=== PATIENT | male | born 1985 | race Caucasian/White ===

== ENCOUNTER 2024-06-15 06:29 | Observation (INO) ==
--- NOTE | 2024-04-30 15:14 | PAT Medication Instructions ---
Medication Instructions Date of Service April 30, 2024 Home Medications celecoxib 100 mg capsule (Celebrex) 200 mg PO QAM cetirizine 10 mg tablet (Zyrtec) 10 mg PO QAM gabapentin 300 mg tablet 600 mg PO HS hydrochlorothiazide 25 mg tablet 25 mg PO QAM lisinopril 40 mg tablet 40 mg PO QAM montelukast 10 mg tablet 10 mg PO QAM multivitamin 1 tab PO QAM ASK your surgeon for instructions celecoxib 100 mg capsule (Celebrex) 200 mg PO QAM DO NOT take the morning of surgery cetirizine 10 mg tablet (Zyrtec) 10 mg PO QAM hydrochlorothiazide 25 mg tablet 25 mg PO QAM lisinopril 40 mg tablet 40 mg PO QAM montelukast 10 mg tablet 10 mg PO QAM multivitamin 1 tab PO QAM Take evening before surgery gabapentin 300 mg tablet 600 mg PO HS NOTHING TO EAT OR DRINK AFTER MIDNIGHT Other Notes If you have any questions please call us at [phone] or [phone] or [phone] or [phone]
--- NOTE | 2024-05-08 10:38 | Anesthesiology Consultation ---
Date of Service May 08, 2024 Assessment & Plan (1) Encounter for pre-operative examination: - awaiting surgeon ordered medical clearance ([facility]). - Outpatient joint pathway: Per surgeon and patient, plan for outpatient joint program. Upon review of chart- patient is an acceptable candidate for Same Day Joint Program from anesthesia perspective pending perioperative course. Pending patient is motivated, has good support and surgeon's office completes Same Day J oint Program preop requirements- patient may proceed with outpatient TIMI. Chart Review Chart Review: Pending: Refer to Additional Notes / Consult section and Patient seen in Pre Admission Testing Teaching & Discussion Pre-Anesthesia Teaching/Discussion Notes: Instructed NPO after midnight before surgery, except medications with 15 cc of water. Medication instructions provided according to the PAT guidelines. History Surgery Operation Date: 06/15/24 07:15 Proposed Procedures p OP: Left Total Hip Replacement - Anterior Approach - Bryce Santiago MD Height/Weight Height: 6 ft 4 in Weight: 115.666 kg Allergies Allergy/AdvReac Type Severity Reaction Status Date / Time bee venom protein (honey bee) Allergy Unknown remote hx, Verified 04/24/24 14:30 hx epi pen, think i grew out of Medications Home Medications Medication Instructions Recorded Confirmed Last Taken celecoxib 100 mg capsule (Celebrex) 200 mg PO QAM 04/24/24 04/24/24 Unknown cetirizine 10 mg tablet (Zyrtec) 10 mg PO QAM 04/24/24 04/24/24 Unknown gabapentin 300 mg tablet 600 mg PO HS 04/24/24 04/24/24 Unknown hydrochlorothiazide 25 mg tablet 25 mg PO QAM 04/24/24 04/24/24 Unknown lisinopril 40 mg tablet 40 mg PO QAM 04/24/24 04/24/24 Unknown montelukast 10 mg tablet 10 mg PO QAM 04/24/24 04/24/24 Unknown multivitamin 1 tab PO QAM 04/24/24 04/24/24 Unknown Past Medical History Medical History History of anesthesia reaction slow to wake up-denies needing re-intubated History of COVID-19 2020 HTN (hypertension) controlled, stable per pt Osteoarthritis left hip injections in hx, most recent: january or february 2024. Seasonal allergies Patient denies h/o stroke, seizures, heart attack, heart failure, DM, blood clots/DVTs or blood transfusions. Exercise / Class Metabolic Activity II 4-5 Yardwork/Stairs/Walk up hill (denies chest discomfort or shortness of breath with one flight of stairs) Past Surgical History Surgical History History of hernia surgery x2 History of tonsillectomy S/P hip arthroscopy left, 08/2022 - w/small composite screw placed Past Anesthesia History No Family Hx of Anesthesia Complications and Other (see above.) History of PONV No Hx of PONV and Hx of Motion Sickness Social History Smoking Status: Never smoker Do You Dip or Chew Tobacco: No Hx Alcohol Use: Yes Alcohol type: beer alcohol intake frequency: a few times a month Hx Substance Use: No substance use type: does not use Review of Systems Patient denies chest pain, shortness of breath, dyspnea on exertion, snoring, witnessed apneas, reflux, fever, chills, cough, wheezing, or palpitations. Physical Exam Vital Signs Vitals BP 129/78 P 61 TEMP 98.3 SP02 98% on RA RESP 18 Physical Patient resting comfortably in chair in no acute distress, alert and oriented, responding appropriately throughout visit Full cervical extension range of motion without pain TMD 3.5 finger breadths Mallampati Score 2 Dentition: intact, denies chipped or loose teeth, caps/crowns, implants or bridges Lungs: normal respiratory effort. Good air movement, clear throughout to auscultation, no adventitious breath sounds Cardiac: regular rate and rhythm, no murmurs noted Carotid arteries: negative bruit bilat Lab Results Anesthesia Preop Results Results Anesthesia Widget: WBC 6.80 K/ul (4.8-10.8) 05/08/24 Hgb 15.3 g/dl (14.0-18.0) 05/08/24 Hct 45.9 % (42.0-52.0) 05/08/24 Plt 173 K/uL (130-400) 05/08/24 Na 138 mmol/L (136-145) 05/08/24 K 3.7 mmol/L (3.5-5.1) 05/08/24 Cl 103 mmol/L (98-107) 05/08/24 CO2 29 mmol/L (21-32) 05/08/24 BUN 17 mg/dl (6-23) 05/08/24 Creat 0.85 mg/dl (0.6-1.4) 05/08/24 Glucose Level 81 mg/dl (70-99(Fasting)) 05/08/24 PT 10.8 Seconds (9.0-12.0) 05/08/24 PTT 27 Seconds (21-31) 05/08/24 INR 1.0 (0.9-1.1) 05/08/24 Urine Color Yellow 05/08/24 Urine Appearance Clear (Clear) 05/08/24 Urine pH 5.5 (4.5-7.5) 05/08/24 Urine Specific [place] 1.008 (1.000-1.030) 05/08/24 Urine Protein Negative (Negative) 05/08/24 Urine Glucose (UA) Negative (Negative) 05/08/24 Urine Ketones Negative (Negative) 05/08/24 Urine Blood Negative (Negative) 05/08/24 Urine Nitrite Negative (Negative) 05/08/24 Urine Bilirubin Negative (Negative) 05/08/24 Urine Urobilinogen Negative (Negative) 05/08/24 Urine Leukocyte Esterase Negative (Negative) 05/08/24 Blood Type B Negative 05/08/24 Antibody Screen NEGATIVE 05/08/24 Testing Electrocardiogram Date: 05/08/24 Sinus bradycardia, rate 55 bpm Right cuevas axis Chest X-Ray Date: 05/08/24 No acute chest disease.
--- NOTE | 2024-06-13 08:31 | History & Physical Report ---
Date of Service June 13, 2024 Assessment & Plan (1) Degenerative joint disease of left hip: Plan: Left total hip replacement direct anterior approach probable same-day surgery [facility] health will be with [facility] History of Present Illness Chief Complaint: Left hip pain Primary Care Provider: Uli Carranza MD Patient is a 39-year-old large statured male with a greater than 3-year history of left hip and groin pain. He has a history of hip arthroscopy with labral debridement where he was noted to have significant degenerative changes in 2020. He now presents with marked decrease in range of motion, limping, limited standing and walking tolerance. He has failed both physical therapy and intra- articular injections. 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 He is admitted for elective hip replacement surgery. Allergies Allergy/AdvReac Type Severity Reaction Status Date / Time bee venom protein (honey bee) Allergy Unknown remote hx, Verified 04/24/24 14:30 hx epi pen, think i grew out of Home Medications Medication Instructions Recorded Confirmed Type celecoxib 100 mg capsule (Celebrex) 200 mg PO QAM 04/24/24 04/24/24 History cetirizine 10 mg tablet (Zyrtec) 10 mg PO QAM 04/24/24 04/24/24 History gabapentin 300 mg tablet 600 mg PO HS 04/24/24 04/24/24 History hydrochlorothiazide 25 mg tablet 25 mg PO QAM 04/24/24 04/24/24 History lisinopril 40 mg tablet 40 mg PO QAM 04/24/24 04/24/24 History montelukast 10 mg tablet 10 mg PO QAM 04/24/24 04/24/24 History multivitamin 1 tab PO QAM 04/24/24 04/24/24 History Past Med/Surg History Problem List (Updated 06/13/24 @ 08:31 by Bryce Santiago MD) Degenerative joint disease of left hip Medical History History of COVID-19 2020 History of anesthesia reaction slow to wake up-denies needing re-intubated Osteoarthritis left hip injections in hx, most recent: january or february 2024. Seasonal allergies HTN (hypertension) controlled, stable per pt Surgical History S/P hip arthroscopy left, 08/2022 - w/small composite screw placed History of hernia surgery x2 History of tonsillectomy Social History Smoking Status: Never smoker Do You Dip or Chew Tobacco: No; Hx Alcohol Use: Yes Alcohol type: beer Hx Substance Use: No Preferred Language: [place] Communication Ability: Effective Collision Repairer Required: No Beliefs That Will Affect Care: None Current Living Situation: Spouse and Family Feels Safe at Home: Yes Assistive Devices: Contacts and Glasses Review of Systems Review of Systems: Hip and groin pain Physical Exam Physical Exam: Weight 120 kg BMI 32 General: Large statured male who appears his stated age. HEENT: NCAT, EOMI, PERRLA. Neck: Supple without bruits Heart: Regular rate and rhythm no murmurs Lungs: Breath sounds clear and present in all romero Abdomen: Obese soft nontender bowel sounds are positive Extremities: The left hip is 5 mm short passive range of motion is 0 to 90 degrees flexion -10 degrees internal rotation all which reproduces groin pain. Neurological and vascular: Intact Results & Data Results & Data Vital Signs (Past 12 Hours) Blood pressure 128/84 Pulse 78
[~2024-06-15 06:29] MED LIST: MEPIVACAINE HCL 1.5% 30 ML VIAL ONE
--- NOTE | 2024-06-15 06:52 | History & Physical Bridge Note ---
Date of Service June 15, 2024 History & Physical Bridge Note I have examined the patient, reviewed the History & Physical and in the interval since the performance of the History & Physical I have noted the following changes of clinical significance: no changes noted
[2024-06-15] MEDS: ACETAMINOPHEN 500 MG TAB PO SCH (07:07)
[2024-06-15] MEDS: LR 500ML BOLUS, THEN 15ML/HR IV SCH (07:07)
[2024-06-15] MEDS: GABAPENTIN 900 MG DOSE PO SCH (07:08)
[2024-06-15] MEDS: CeleBREX 200 MG CAP PO SCH (07:08)
[2024-06-15] MEDS: dexAMETHasone**PF** 10 MG/ML VIAL IV SCH (07:08)
[2024-06-15] MEDS: FAMOTIDINE 20 MG TAB PO SCH (07:08)
[2024-06-15] MEDS: METOCLOPRAMIDE HCL 10 MG TABLET PO SCH (07:09)
[2024-06-15] MEDS: oxyCODONE HCL 10 MG TABCR (OxyCONTIN) PO SCH (07:09)
[2024-06-15] MEDS: LR 60ML/HR IV SCH (07:09)
[2024-06-15] MEDS ORDERED: MIDAZOLAM HCL 1 MG/ML 2ML VIAL ONE (08:06)
[2024-06-15] MEDS ORDERED: ePHEDrine sulfate 50 MG/ML AMP IV PRN (08:30)
[2024-06-15] MEDS ORDERED: ATROPINE SULFATE 0.1 MG/ML 10ML SYR IV PRN (08:30)
[2024-06-15] MEDS ORDERED: ONDANSETRON INJ 2 MG/ML 2 ML VIAL IV PRN ×2 (08:30→17:17)
[2024-06-15] MEDS: TRANEXAMIC ACID 1,000 MG **IV Pre-op IV SCH (08:46)
[2024-06-15] MEDS ORDERED: fentaNYL citrate PF 100 MCG/2 ML VIAL ONE ×2 (08:56→10:43)
[2024-06-15] MEDS: ceFAZolin 3000MG 3,000 MG/72.5 ML BAG IV SCH (09:20)
[2024-06-15] MEDS: ORTHO JOINT ANESTHETIC ONE (09:53)
[2024-06-15] MEDS ORDERED: PROPOFOL IV EMULSION 10 MG/ML 20 ML VIAL IV ONE (10:23)
[2024-06-15] MEDS ORDERED: KETOROLAC 30 MG/ML VIAL ONE (10:23)
[2024-06-15] MEDS ORDERED: LIDOCAINE 2% 2 ML VIAL/AMP(20MG/ML) INFIL ONE (10:23)
[2024-06-15] MEDS: TRANEXAMIC ACID 1,000 MG **IV Intra-op IV SCH (10:25)
--- NOTE | 2024-06-15 10:31 | Post Operative Brief Note ---
Immediate Post Op Note Date of Surgery June 15, 2024 Pre & Post Diagnosis Operation Date: 06/15/24 09:05 Pre-Op Diagnosis: Osteoarthritis Left Hip Post-Op Diagnosis: Osteoarthritis Left Hip I identified the patient and participated in the time-out.: Yes Procedure Operation Date: 06/15/24 09:05 Actual Procedures p Left Total Hip Replacement - Anterior Approach(Left) - Bryce Santiago MD Surgeon Bryce Santiago MD Ribbon Inker Suleiman Fischer PAPetty Estimated Blood Loss 100 Findings Consistent with Post-Op Diagnosis Drains Hemovac Drain
[2024-06-15] MEDS: ROPIV 0.5% 246mg, Ketorolac 30mg, EPINEPHrine 0.5mg in NSS INFIL SCH (10:32)
[2024-06-15] MEDS: HYDROmorphone INJ 2 MG/ML SYR/VIAL IV PRN (11:04)
[2024-06-15] MEDS ORDERED: HYDROmorphone INJ 0.5 MG/0.5 ML SYR IV PRN ×2 (11:26→17:17)
[2024-06-15] MEDS: HYDROmorphone INJ 0.5 MG/0.5 ML SYR IV PRN (11:27)
[2024-06-15] MEDS: HYDROmorphone INJ 0.5 MG/0.5 ML SYR ONE (11:30)
--- NOTE | 2024-06-15 11:41 | Fluoroscopy Report ---
INTRAOPERATIVE RADIOGRAPHS CLINICAL HISTORY: Left hip arthroplasty placement. Fluoro time: 10 seconds Ka,r: 1.98 mGy FINDINGS: 2 spot fluoroscopic views of the left hip from an arthroplasty procedure are presented. A b ipolar left hip arthroplasty is in near anatomic alignment. A single cortical lag screw transfixes th e acetabular cup. There is no evidence of acute fracture on these fluoroscopic images. IMPRESSION: Intraoperative images from a left hip arthroplasty procedure as above. Electronically signed by: Luis Jiang M.D. 06/15/2024 11:39 AM
[2024-06-15] MEDS: traMADol HCL 50 MG TABLET PO PRN (12:31)
--- NOTE | 2024-06-15 12:35 | Operative Report ---
Post Operative Report Pre & Post Diagnosis Operation Date: 06/15/24 09:05 Pre-Op Diagnosis: Osteoarthritis Left Hip Post-Op Diagnosis: Osteoarthritis Left Hip I identified the patient and participated in the time-out.: Yes Procedure Operation Date: 06/15/24 09:05 Actual Procedures p Left Total Hip Replacement - Anterior Approach(Left) - Bryce Santiago MD Surgeon Bryce Santiago MD Meat Stock Clerk Suleiman Fischer PA-C Estimated Blood Loss 100 Findings Consistent with Post-Op Diagnosis Severe degenerative changes with acetabular dysplasia and large femoral head osteophytes Specimens Femoral head and bone and cartilage fragments Complications None Indications Components used: [employer] Polar uncemented system: Acetabulum size 56 with 25 mm dome screw and 36 mm highly cross-linked polyethylene liner. Femur size 6 standard offset with +836 mm Oxinium head Description of Procedure Following satisfactory spinal anesthesia the patient was supine on the operating room table. Left legin the traction device in the right leg in the well-leg kang. Positioning was confirmed with fluoroscopy. The leg was prepared with ChloraPrep and draped sterilely. A surgical timeout was performed. An anterior approach was performed in the interval between the sartorius and tensor muscles. The circumflex femoral vessels were identified and coagulated. An anterior capsulotomy was performed exposing the arthritic femoral neck and head. The hip showed the changes noted above. Fluoroscopy was used to confirm femoral neck resection level. The femoral head and neck were trimmed at the appropriate level and the arthritic femoral head was removed. The acetabular self-retaining retractor was placed. Acetabular preparation was completed with excision of labral and capsular tissue. The acetabulum was then reamed under direct vision. A 56 shell was impacted into a healthy bed in a position of 35 to 40 degrees of abduction and 25 degrees of anteversion confirmed with fluoroscopy. A dome screw was placed followed by the polyethylene liner. I large inferior osteophyte was removed. Local anesthetic was placed and the wound was irrigated. The femur was placed into a position of external rotation extension and adduction. Femoral canal was identified and was prepared up to the size 6. A trial reduction with a standard offset neck and a +8 head trial was performed. Fluoroscopy showed good fit and fill of the proximal canal, very good orientation of the components, and buddhism of leg length and offset at the level of the lesser trochanter. The hip was dislocated. The trial component removed. Local anesthetic was placed. After irrigation the final stem head complex of the same size was placed. The hip was reduced with fluoroscopy showing similar findings. The wound was irrigated with 500 cc of experience irrigation. There was some general oozing. A Hemovac drain was placed. The tensor fascia was closed with a running suture of 0 STRATAFIX as was the deeper subcutaneous fat layers. The most superficial layer was closed with a running subcuticular stitch of 3 oh STRATAFIX. Dermabond Prineo and a negative pressure wound dressing were applied. The patient was returned to his bed in stable condition. I attest to the content of the Intraoperative Record and any orders documented therein. Any exceptions are noted below.
--- NOTE | 2024-06-15 12:40 | Operative Report ---
Post Operative Report Pre & Post Diagnosis Operation Date: 06/15/24 09:05 Pre-Op Diagnosis: Osteoarthritis Left Hip Post-Op Diagnosis: Osteoarthritis Left Hip I identified the patient and participated in the time-out.: Yes Procedure Operation Date: 06/15/24 09:05 Actual Procedures p Left Total Hip Replacement - Anterior Approach(Left) - Bryec Santiago MD Surgeon Bryce Santiago MD Race Car Mechanic Suleiman WYMAN-C Estimated Blood Loss 100 Findings Consistent with Post-Op Diagnosis Specimens Femoral head and bone and cartilage fragments Description of Procedure Note: Suleiman WYMAN was present and assisted throughout due to the complicated nature of this case. He help with preparation and set up and medical assistant float throughout. He assisted with hemostasis and exposure throughout the procedure. He also closed the fascial subcutaneous and skin layers and applied the postop dressing. I attest to the content of the Intraoperative Record and any orders documented therein. Any exceptions are noted below.
--- NOTE | 2024-06-15 13:11 | Anesthesiology Progress Note ---
Date of Service June 15, 2024 Anesthesia Post Procedure Vital Signs Vital Signs: Temp Pulse Pulse Resp BP Pulse Ox O2 Del Method 06/15/24 12:30 68 16 113/70 95 Room Air 06/15/24 12:00 36.4 C L 80 16 131/67 100 Room Air 06/15/24 11:45 36.3 C L 76 22 116/71 96 Room Air 06/15/24 11:35 76 19 118/57 L 95 Room Air 06/15/24 11:25 78 15 128/74 99 Nasal Cannula 06/15/24 11:15 82 17 133/81 91 Room Air 06/15/24 11:05 83 18 128/67 96 Room Air 06/15/24 10:55 36.2 C L 79 12 139/69 96 Room Air 06/15/24 07:29 36.6 C 80 18 158/95 H 100 Room Air O2 Flow Rate 06/15/24 12:30 06/15/24 12:00 06/15/24 11:45 06/15/24 11:35 06/15/24 11:25 2 06/15/24 11:15 06/15/24 11:05 06/15/24 10:55 06/15/24 07:29 Pain Intensity Left Hip: Pain Intensity: 6 Transfer of Care Handoff Completed per policy Notes Mental Status: alert / awake / arousable and participated in evaluation Nausea / Vomiting: adequately controlled Pain: adequately controlled Airway Patency, RR, SpO2: stable & adequate BP & HR: stable & adequate Hydration State: stable & adequate Anesthetic Complications: no major complications apparent and Pt Satisfied with anesthetic care
[2024-06-15] MEDS ORDERED: ACETAMINOPHEN 500 MG TAB PO PRN (15:00)
[2024-06-15] MEDS: ceFAZolin 2000MG 2,000 MG/15 ML SYR IV SCH ×2 (16:12→21:49)
[2024-06-15] MEDS: diphenhydrAMINE 50 MG/ML VIAL ONE (16:28)
[2024-06-15] MEDS ORDERED: diphenhydrAMINE 50 MG/ML VIAL IV STA (16:32)
[2024-06-15] MEDS ORDERED: oxyCODONE HCL IR 5 MG TAB (IMMEDIATE RELEASE) PO PRN (17:17)
[2024-06-15] MEDS ORDERED: NALOXONE HCL 0.4 MG/1 ML VIAL/CARP IV PRN (17:17)
[2024-06-15] MEDS ORDERED: MAGNESIUM HYDROXIDE SUSP 30 ML UDC PO PRN (17:17)
[2024-06-15] MEDS ORDERED: ALUMINUM/MAGNESIUM SUSP 30 ML UDC PO PRN (17:17)
[2024-06-15] MEDS ORDERED: bisacodyL 10 MG SUPP PR PRN (17:17)
[2024-06-15] MEDS: SODIUM CHLORIDE 0.9% 1,000 ML IV SCH (17:45)
[2024-06-15] MEDS: KETOROLAC 30 MG/ML VIAL IV SCH (17:59)
[2024-06-15] MEDS: GABAPENTIN 300 MG CAP PO SCH (20:27)
[2024-06-15] MEDS: ASPIRIN 81 MG ECTAB PO SCH (20:32)
[2024-06-15] MEDS: DOCUSATE SODIUM 100 MG CAP PO SCH (20:32)
[2024-06-15] MEDS: diphenhydrAMINE 50 MG/ML VIAL IV PRN (21:49)
[2024-06-16 03:51] VITALS: RESP 16; TEMP 98.1
[2024-06-16 06:37] LABS: Basophils # (auto) 0.01 K/uL (0.00-0.20); Basophils % (auto) 0.1 %; Eosinophils # (auto) 0.06 K/uL (0.00-0.50); Eosinophils % (auto) 0.6 %; Hematocrit (blood only) 27.4 % (42.0-52.0); Hemoglobin 9.3 g/dl (14.0-18.0); Immature Granulocytes # (auto) 0.06 K/uL (0.01-0.20); Immature Granulocytes % (auto) 0.6 %; Lymphocytes # (auto) 2.01 K/uL (1.20-3.40); Lymphocytes % (auto) 19.1 %; Mean Corpuscular Hemoglobin 30.3 pg (25.0-34.0); Mean Corpuscular Hgb Conc 33.9 g/dL (32.0-36.0); Mean Corpuscular Volume 89.3 fL (80.0-100.0); Mean Platelet Volume 10.7 fL (9.4-12.4); Monocytes # (auto) 1.38 K/uL (0.11-0.59); Monocytes % (auto) 13.1 %; Neutrophils # (auto) 6.98 K/uL (1.40-6.50); Neutrophils % (auto) 66.5 %; Platelet Count 143 K/uL (130-400); RDW Coefficient of Variation 12.7 % (11.5-14.5); RDW Standard Deviation 41.1 fL (36.4-46.3); Red Blood Count 3.07 M/uL (4.70-6.10)
[2024-06-16 06:59] LABS: BUN Creatinine Ratio 22.5 (10-20); Creatinine Clr Calc Pharmacy 136.8 ml/min; Est GFR (African American) 106.8 ml/min; Est GFR (Non-African American) 92.2 ml/min; Potassium 4.3 mmol/L (3.5-5.1)
[2024-06-16 07:18] VITALS: BP 120/55; PULSE 90; O2SAT 100
--- NOTE | 2024-06-16 08:47 | Orthopedic Progress Note ---
Date of Service June 16, 2024 Assessment & Plan (1) Degenerative joint disease of left hip: Plan: patient seems to be doing better this morning. His hemoglobin is a little bit low but seems to be well-tolerated his blood pressure is 120/55 and his pulse is 90. I suspect his hemoglobin is a little bit delusional as he did receive a large amount of intravenous fluids. This morning he seems to be doing much better and is long as he passes physical therapy we we will allow him to go home. He is encouraged to rest he will be followed by [facility] home health from the [facility] ([place] area. We did DC his drain this morning as it is not putting out much out (2) Anemia due to blood loss, acute: Admission and Anticipated Discharge Date Admission Date: June 15, 2024 Subjective Postoperative day #1 left total hip replacement Patient had hypotension and dizziness yesterday and 1 was unable to go home same day because of this. This morning he reports feeling better. He still is a little stiff and tired but states that he feels much better and is anxious to try to go home. His pain is well-controlled. Physical Exam Physical Exam: Patient is examined at the bedside he is awake alert and oriented x 3. His hip is located. His thigh and calf are soft and nontender. He is neurologically and vascularly intact. Hemovac drain has put out a total of 100 cc. Results & Data Vital Signs (Past 12 Hours) Vital Signs Temp Pulse Resp BP Pulse Ox O2 Del Method 06/16/24 07:17 36.7 C 90 16 120/55 L 100 Room Air 06/16/24 03:42 36.7 C 85 16 113/57 L 98 Room Air 06/15/24 23:08 36.8 C 81 18 107/64 98 Room Air Laboratory Results Hemoglobin 9.3
[2024-06-16] MEDS: MONTELUKAST SODIUM 10 MG TABLET PO SCH (08:53)
[2024-06-16] MEDS: MULTIVITAMIN TAB PO SCH (08:54)
[2024-06-16] MEDS: lisinopril 40 MG TAB PO SCH (08:54)
[2024-06-16] MEDS: hydroCHLOROthiazide 25 MG TAB PO SCH (08:54)
[2024-06-16] MEDS: CETIRIZINE HCL 10 MG TABLET PO SCH (08:54)
--- NOTE | 2024-06-20 14:19 | Discharge Summary ---
Date of Service June 20, 2024 Admission HPI Per Admitting Provider Patient is a 39-year-old large statured male with a greater than 3-year history of left hip and groin pain. He has a history of hip arthroscopy with labral debridement where he was noted to have significant degenerative changes in 2020. He now presents with marked decrease in range of motion, limping, limited standing and walking tolerance. He has failed both physical therapy and intra- articular injections. 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 He is admitted for elective hip replacement surgery. Admission Exam Per Admitting Provider Physical Exam: Weight 120 kg BMI 32 General: Large statured male who appears his stated age. HEENT: NCAT, EOMI, PERRLA. Neck: Supple without bruits Heart: Regular rate and rhythm no murmurs Lungs: Breath sounds clear and present in all romero Abdomen: Obese soft nontender bowel sounds are positive Extremities: The left hip is 5 mm short passive range of motion is 0 to 90 degrees flexion -10 degrees internal rotation all which reproduces groin pain. Neurological and vascular: Intact Principal Diagnosis Left Hip Ostoearthritis Discharge Data Allergies Allergy/AdvReac Type Severity Reaction Status Date / Time bee venom protein (honey bee) Allergy Unknown remote hx, Verified 06/15/24 06:54 hx epi pen, think i grew out of Procedures Performed Operation Date: 06/15/24 09:05 Actual Procedures p Left Total Hip Replacement - Anterior Approach(Left) - Bryce Santiago MD Ordered Studies 06/15/24 09:05 FL hip LT 1V Routine Hospital Course (1) Degenerative joint disease of left hip: Patient: ASIM RAMIREZ Admit Date: 06/15/24 MR#: [id number] Att Phy: Bryce Santiago MD Acct ID: [id number] [place] Phy: Uli Carranza MD Date: 1985 Fam Phy: Age: 39 Location: 3E Sex: M Room/Bed: E309-1 cc: ~ *NOTICE TO RECEIVING [employer]/AGENCY This information is strictly Confidential and protected under [place] law. [place] law prohibits you from making any further disclosure of this information unless further disclosure is expressly permitted by the written consent of the person to whom it pertains or is authorized by law. A general authorization for the release of medical or other information is not sufficient for this purpose. Hospital accepts no responsibility if the information is made available to any other person, INCLUDING THE PATIENT. Date of Service June 16, 2024 Assessment & Plan (1) Degenerative joint disease of left hip: Plan: patient seems to be doing better this morning. His hemoglobin is a little bit low but seems to be well-tolerated his blood pressure is 120/55 and his pulse is 90. I suspect his hemoglobin is a little bit delusional as he did receive a large amount of intravenous fluids. This morning he seems to be doing much better and is long as he passes physical therapy we we will allow him to go home. He is encouraged to rest he will be followed by [facility] home health from [place]. We did DC his drain this morning as it is not putting out much out (2) Anemia due to blood loss, acute: Admission and Anticipated Discharge Date Admission Date: June 15, 2024 Subjective Postoperative day #1 left total hip replacement Patient had hypotension and dizziness yesterday and 1 was unable to go home same day because of this. This morning he reports feeling better. He still is a little stiff and tired but states that he feels much better and is anxious to try to go home. His pain is well-controlled. Physical Exam Physical Exam: Patient is examined at the bedside he is awake alert and oriented x 3. His hip is located. His thigh and calf are soft and nontender. He is neurologically and vascularly intact. Hemovac drain has put out a total of 100 cc. Results & Data Vital Signs (Past 12 Hours) Vital Signs Temp Pulse Resp BP Pulse Ox O2 Del Method 06/16/24 07:17 36.7 C 90 16 120/55 L 100 Room Air 06/16/24 03:42 36.7 C 85 16 113/57 L 98 Room Air 06/15/24 23:08 36.8 C 81 18 107/64 98 Room Air Laboratory Results Hemoglobin 9.3 Signed By: <Electronically signed by Bryce Santiago MD> 06/16/24 0847 (2) Anemia due to blood loss, acute: Total Time Total Time Spent Total Time Spent (In Minutes): 5 Discharge Plan Discharge Items Patient Disposition: Home - Home Health Services Reason For Visit: Osteoarthritis Left Hip Discharge Diagnosis: Osteoarthritis Left Hip Activity: Per Instructions section Non-emergency contact: Surgeon Call non-emergency contact if: you have any medication questions, your pain is not controlled, your temperature is above 101.5, your wound has increased redness and your wound has increased drainage Follow-up/Referrals: [facility] Home Health Care: [facility] [Outside] (a per surgeon's office ) Bryce Santiago MD [Surgeon] - (Follow up with Dr. Santiago or his PA in 2 weeks from the day of your surgery for your first post operative visit. ) Uli Carranza MD [Primary Care Provider] - Diet: Regular Addtl Attending Provider Instructions: DR. LE POST-OP INSTRUCTIONS FOR TOTAL HIP ARTHROPLASTY PLEASE REVIEW PRIOR TO SURGERY Day of Surgery You will be admitted and meet the nursing and anesthesia team. Dr. Santiago will see you and sign your operative side. Anesthesia will place your spinal anesthetic in the pre-op area Your surgery will be performed and last approximately 1 2 hours. Upon waking, you will notice a dressing and ice pack on your hip. You will remain in the recovery room for 1 2 hours, then be transferred to your room in the ambulatory surgical area if you are to go home the same day as your surgery or transferred to the orthopedic floor if you will be staying overnight. Most of Dr. Le total hip patients go home the same day as surgery. This depends on how well you feel. Patients generally seem to feel better in their own home environment, and the risk of exposure to bad bugs is much lower. (Your post-operative medications will be sent to your pharmacy approximately 1-2 days prior to your procedure) Day 1 post-op (if you have an overnight stay in the hospital) You will have bloodwork drawn in the morning Physical therapy will evaluate you in the morning. You will start ge tting out of bed and ambulating with a walker. They will instruct you on hip motion exercises. Use your cold packs as instructed. This will decrease swelling and minimize pain. field services analyst will discuss your discharge plan. Discharge will generally be around 11am Day 1 post-op (all patients) You will be taking Aspirin 81mg twice for 4 weeks to decrease the risk of a blood clot. You will most likely have a drain and a LAILA (superficial wound VAC) dressing post-operatively. This will keep your incision dry as well as aid in early healing. The batteries will wear out and the VAC will lose suction around day 6 - 7 post-op. At that time, you may turn off the device and disconnect from the dressing. You must keep the dressing on until your first post- operative visit with Dr. Santiago. If the dressing appears to be saturated, please call our office. Day 2 14 post-op You will have a home nurse visit to assess your status and remove your drain on post-op day 2. You are permitted to shower immediately with the VAC. Do not soak the dressing let the shower flow on your opposite side, and pat dry the plastic. Once the dressing has been removed, you may shower normally with the incision exposed. Do not rub the area simply let soapy water run over the incision and lightly pat dry. Therapy will begin on post-op day 3. Your therapy prescription will be sent to your home therapy company/therapist You should continue doing your home exercises Week 2 post-op and forward You will have your first post-op appointment 2 weeks after surgery which should have been scheduled for you by our office. This appointment will be to check your incision, progression of therapy and pain control. Xrays will be taken to evaluate the prosthesis. You will continue to use a cane or a walker until you feel safe enough to stop using it. You will have a 6-week post-op appointment which should have been scheduled for you by our office. Xrays will be taken to evaluate the prosthesis. You will continue to advance range of motion. By 3 to 4 months after surgery, you should have almost full range of motion and may resume most activities. You may have some pain around the hip with certain activities this is completely normal. You will be scheduled for a 1 year post-op appointment to assess your outcome (sooner if Dr. Santiago feels necessary). Pain: The immediate post-op period after hip replacement surgery can be painful. However, the degree and frequency of the pain is generally much less than knee replacement surgery. You should take your pain medicine as you need it, especially prior to physical therapy and bedtime. Your pain will decrease and you may transition to a milder pain medicine (with less side effects, such as Tylenol) as soon as possible. It is common to have pain at night that interferes with sleep this can last for several months. Pain medicines can cause nausea and constipation do not take more than you need. You may be prescribed one or more of the following MEDICATIONS : 1. Celebrex this controls inflammation and makes pain medications mor effective it will be taken once or twice a day 2. Tylenol a pain medicine that can help to decrease your pain you sh ould take 1000mg three times a day 3. Tramadol a pain medicine that can be taken every 4-6 hours (instead of Oxycodone) as needed to control your pain 4. Oxycodone a VERY strong pain medicine that can be taken every 4-6 hours (instead of Tramadol) as needed to control your pain. This medication has the most side effects and is usually not necessary for hip replacements. 5. Aspirin 81mg blood thinning medication to help minimize the risk of development of blood clots unfortunate side effects of pain medicine include nausea and constipation if you experience these issues or have any questions about your post-op medications, call [facility] at for assistance/advice on how to manage these issues Hip replacement surgery does not require a lot of aggressive physical therapy. Learning to walk safely and obeying hip precautions are most important. While in the hospital, you will be shown a series of home exercises you should perform these exercises 3 4 times daily in addition to physical therapy. After the completion of home therapy (approx.. 2 weeks), most therapy exercises can be done on your own. You should walk several times a day. Try not to be standing for more than an hour at a time during the first 4 weeks post-op as you may experience more swelling. If you develop swelling, you need to elevate your legs/feet at or above the level of your heart. You may progress from a walker to a cane to walking independently as you feel comfortable. Unless it is an emergency, YOUR ARE NOT PERMITTED TO HAVE ANY DENTAL CLEANING/WORK UNTIL 3 MONTHS AFTER SURGERY. You will be required to take an antibiotic prior to any dental cleaning or dental work in order to prevent your joint prothesis from getting infected. This medication is a one time per visit dose to be taken one hour prior to appointment. You may call our office for this prescription or your dentist may be willing to prescribe the medication. Remember to contact [facility] at if you develop any signs of infection which include increased swelling, pain, redness, drainage from incision, warmth, fever, chills or severe pain unrelieved by pain medication. If you develop any chest pain or shortness of breath, you should proceed immediately to the nearest Emergency Room. It is normal to run a low-grade fever after surgery. If your fever is consistent at 101.0 or higher, you will need to contact the office. Pending Studies at Discharge: No Stand-Alone Forms: Anesthesia/Sedation, Adult, My [facility], Pain - Opioid Pain Management Medications and DC Order Prescriptions: Continued cetirizine [Zyrtec] 10 mg Tablet 10 mg PO QAM montelukast 10 mg Tablet 10 mg PO QAM hydrochlorothiazide 25 mg Tablet 25 mg PO QAM lisinopril 40 mg Tablet 40 mg PO QAM gabapentin 300 mg Tablet 600 mg PO HS multivitamin Tablet 1 tab PO QAM Patient Comments: anahi Bhat celecoxib [Celebrex] 100 mg Capsule 200 mg PO QAM Hold Instructions: You will be taking Celebrex twice daily for 4 weeks after surgery. After 4 weeks, you will go back to your once daily dosage. Nicolas/Other Patient Handouts: DVT Post Op Prevention Admission Data Admit Date/Time: 06/15/24 15:52 Attending Provider: Bryce Santiago Admit Provider: Bryce Santiago Primary Care Provider: Uli Carranza Other Interventions: Discharge Summary Assessment (RN) Last Done: 06/16/24 09:55
== END 2024-06-16 11:09 | disposition home health service (06) ==
LOC: ASU 06:29 → 3E 06:29
DX: Z01.812 Encounter for preprocedural laboratory examination; Z91.030 Bee allergy status; I10 Essential (primary) hypertension; Z01.818 Encounter for other preprocedural examination; R00.1 Bradycardia, unspecified; Z01.810 Encounter for preprocedural cardiovascular examination; Z79.899 Other long term (current) drug therapy; M16.12 Unilateral primary osteoarthritis, left hip